=== PATIENT | male | born 1985 ===

== ENCOUNTER 2020-09-20 06:07 | Emergency (ER) | payer OTHER | END 2020-09-20 07:02 | LOC: ED 06:07 | DX: Z02.89 Encounter for other administrative examinations (principal) ==

== ENCOUNTER 2020-09-20 06:07 | Emergency (ER) | payer SELFPAY ==
[~2020-09-20] VITALS: Ht 172.7 cm; Wt 97.5 kg
[2020-09-20 06:22] VITALS: Ht 172.7 cm; Wt 97.5 kg
[2020-09-20 07:02] VITALS: BP 143/105
== END 2020-09-20 07:02 ==
LOC: ED 06:07
DX: F10.129 Alcohol abuse with intoxication, unspecified (principal); I10 Essential (primary) hypertension; F41.9 Anxiety disorder, unspecified
CPT/HCPCS: J2060

== ENCOUNTER 2020-09-28 06:45 | Emergency (ER) | payer OTHER ==
[~2020-09-28] VITALS: Ht 177.8 cm; Wt 95.3 kg
[2020-09-28 06:57] VITALS: Ht 177.8 cm; Wt 95.3 kg
[2020-09-28 07:59] VITALS: BP 159/94
== END 2020-09-28 07:50 ==
LOC: ED 06:45
DX: Z02.89 Encounter for other administrative examinations (principal)